=== PATIENT | female | born 1945 | race Caucasian/White ===

== ENCOUNTER 2017-05-21 04:34 | Emergency (ER) | payer MEDICARE, BC ==
[2017-05-21] MEDS ORDERED: DICYCLOMINE 10 MG CAPSULE PO STA (04:54)
[2017-05-21] MEDS ORDERED: ONDANSETRON ODT 4 MG TABLET TL STA (04:54)
--- NOTE | 2017-05-21 04:59 | ED Physician Documentation ---
PD HPI NVD - Stated complaint Stated Complaint: ABDOMINAL,LOW BACK PAIN - Chief complaint Chief Complaint: Abd Pain - History obtained from History obtained from: Patient - History of Present Illness Timing - onset: Today Timing - details: Gradual onset, Now resolved Associated symptoms: Abdominal pain. No: Fever, Chest pain, Hematemesis Worsened by: Eating Similar symptoms before: No diagnosis Recently seen: Not recently seen - Additonal information Additional information: Patient is a 71 year old female with a history of htn who is presenting to the emergency department for nausea, vomiting and diarrhea. Patient states that she had three or four episodes of vomiting and one episode of diarrhea. Patient stated that she had her bring her in. Patient states that she took aspirin before coming and now her symptoms have resolved. Review of Systems Constitutional: denies: Fever, Chills Eyes: denies: Decreased vision Ears: denies: Ear pain Nose: denies: Congestion Throat: denies: Sore throat Cardiac: denies: Chest pain / pressure, Palpitations Respiratory: denies: Dyspnea, Cough, Wheezing GI: reports: Abdominal Pain, Nausea, Vomiting, Diarrhea : denies: Dysuria, Frequency, Hesitancy Skin: denies: Rash, Lesions Musculoskeletal: reports: Back pain. denies: Neck pain, Extremity pain, Joint pain Neurologic: denies: Generalized weakness, Focal weakness, Numbness Immunocompromised: denies: Immunocompromised PD PAST MEDICAL HISTORY - Present Medications Home Medications: Ambulatory Orders Medication Instructions Recorded Confirmed Amlodipine Besylate [Norvasc] 1 tab PO DAILY 05/21/17 05/21/17 Cholecalciferol (Vitamin D3) 1 cap PO DAILY 05/21/17 05/21/17 [Vitamin D3] Dicyclomine [Bentyl] 10 mg PO QID #14 capsule 05/21/17 Letrozole [Femara] 1 tab PO DAILY 05/21/17 05/21/17 Ondansetron [Ondansetron Odt] 4 mg PO Q8H PRN #20 tab.rapdis 05/21/17 - Allergies Allergies/Adverse Reactions: Allergies Allergy/AdvReac Type Severity Reaction Status Date / Time erythromycin base AdvReac Unknown Verified 05/21/17 04:48 [From E-Mycin] PD ED PE NORMAL - Vitals Vital signs reviewed: Yes - General General: Alert and oriented X 3, No acute distress, Well developed/nourished - HEENT HEENT: Atraumatic, PERRL, Pharynx benign - Neck Neck: Supple, no meningeal sign, No JVD - Cardiac Cardiac: RRR, No murmur - Respiratory Respiratory: No respiratory distress, Clear bilaterally - Abdomen Abdomen: Soft - Derm Derm: Normal color, Warm and dry, No rash - Extremities Extremities: No deformity, No edema - Neuro Neuro: Alert and oriented X 3, No motor deficit, No sensory deficit, Normal speech - Psych Psych: Normal mood PD ED PE EXPANDED - HEENT HEENT: Dry mucous membranes - Abdomen Abdomen: Hyperactive BS, Tender to palpation, Epigastric. No: Rebound, Guarding Results - Vitals Vitals: Vital Signs - 24 hr 05/21/17 04:44 Temperature 36.4 C L Heart Rate 76 Respiratory 16 Rate Blood Pressure 169/92 H O2 Saturation 96 Oxygen O2 Source Room air PD MEDICAL DECISION MAKING - ED course Complexity details: reviewed old records, re-evaluated patient, considered differential, d/w patient ED course: Patient was seen and examined at bedside. patient stated that she was feeling better now. patient was offered labs/diagnostics but she stated that she did not think it was necessary as she was no asymptomatic. Patient was treated with zofran and bentyl. patient was given detailed discharge and return instructions. Patient required no further work up and was stable for discharge with outpatient follow up. Departure - Departure Disposition: 01 Home, Self Care Clinical Impression: Gastroenteritis Condition: Good Instructions: ED Gastroenteritis Viral Follow-Up: Laura Andrade MD [Primary Care Provider] - Within 3 Days Prescriptions: Dicyclomine [Bentyl] 10 mg PO QID #14 capsule Ondansetron [Ondansetron Odt] 4 mg PO Q8H PRN #20 tab.rapdis PRN Reason: Nausea / Vomiting Comments: please take the zofran as needed for nausea. you should try to stay well hydrated with gatorade or electrolyte solutions. you should follow up with your pmd if your symptoms persist for more than the next couple of days. You should return to the emergency department for chest pain, shortness of breath, inability to stay hydrated, new, worsening or uncontrollable symptoms.
[2017-05-21] MEDS ORDERED: DICYCLOMINE 10 MG CAPSULE PO ONE (05:05)
[2017-05-21] MEDS ORDERED: ONDANSETRON ODT 4 MG TABLET ONE (05:05)
[2017-05-21 05:15] VITALS: BP 102/68
[2017-05-21] MEDS ORDERED: IOPAMIDOL-300 100 ML VIAL ONE (06:09)
[2017-05-21] MEDS ORDERED: LIDOCAINE JELLY 2% 5 ML TUBE TOP ONE (08:57)
== END 2017-05-21 05:15 | disposition home or self-care (01) ==
LOC: ED 04:34
DX: K52.9 Noninfective gastroenteritis and colitis, unspecified (principal); I10 Essential (primary) hypertension
CPT/HCPCS: 99283; A9270; J3490; Q0162; 80053; 83690; 85025

== ENCOUNTER 2017-05-21 05:38 | Observation (INO) | payer MEDICARE, BC ==
--- NOTE | 2017-05-21 05:49 | ED Physician Documentation ---
PD HPI ABD PAIN - Stated complaint Stated Complaint: ABDOMINAL PAIN,VOMITING - Chief complaint Chief Complaint: Abd Pain - History obtained from History obtained from: Patient, Family - History of Present Illness Timing - onset: Yesterday Timing - details: Gradual onset, Still present Quality: Cramping, Aching Radiation: Lower back Worsened by: Eating Associated symptoms: Nausea, Vomiting, Diarrhea. No: Fever Similar symptoms before: Work up / diagnostics, Treatment Recently seen: Emergency Dept - Additional information Additional information: Patient is a 71 year old female presenting to the emergency department for nausea, vomiting and abdominal pain. Patient was seen in the emergency department about an hour prior. at that time patient stated that she did not want any work up since she was feeling better. Patient states that she got in the car to go home and shortly into the drive the pain came back and patient vomited again and the pain came back so the patient returned for evaluation. Review of Systems Constitutional: denies: Fever, Chills Eyes: reports: Reviewed and negative Ears: reports: Reviewed and negative Nose: denies: Rhinorrhea / runny nose, Congestion Throat: denies: Oral lesions / sores, Sore throat Cardiac: denies: Chest pain / pressure, Palpitations Respiratory: denies: Cough, Wheezing GI: reports: Abdominal Pain, Nausea, Vomiting, Diarrhea : denies: Dysuria, Frequency, Hesitancy Skin: denies: Rash, Lesions Musculoskeletal: denies: Neck pain, Back pain, Extremity pain Neurologic: denies: Generalized weakness, Focal weakness Immunocompromised: denies: Immunocompromised PD PAST MEDICAL HISTORY - Past Medical History Cardiovascular: Hypertension - Past Surgical History Past Surgical History: Yes /[employer]ER: Hysterectomy - Present Medications Home Medications: Ambulatory Orders Medication Instructions Recorded Confirmed Amlodipine Besylate [Norvasc] 2.5 mg PO DAILY 05/21/17 05/21/17 Cholecalciferol (Vitamin D3) 2,000 unit PO DAILY 05/21/17 05/21/17 [Vitamin D3] Letrozole [Femara] 2.5 mg PO DAILY 05/21/17 05/21/17 - Allergies Allergies/Adverse Reactions: Allergies Allergy/AdvReac Type Severity Reaction Status Date / Time erythromycin base AdvReac Unknown Verified 05/21/17 05:41 [From E-Mycin] - Social History Does the pt smoke?: No Smoking Status: Never smoker Does the pt drink ETOH?: Yes Does the pt have substance abuse?: No - Immunizations Immunizations are current?: Yes - POLST Patient has POLST: No PD ED PE NORMAL - Vitals Vital signs reviewed: Yes - General General: Alert and oriented X 3, No acute distress - HEENT HEENT: Atraumatic, PERRL, Pharynx benign - Neck Neck: Supple, no meningeal sign, No JVD - Cardiac Cardiac: RRR, No murmur - Respiratory Respiratory: No respiratory distress, Clear bilaterally - Abdomen Abdomen: Soft - Derm Derm: Normal color, Warm and dry, No rash - Extremities Extremities: No deformity, No tenderness to palpate, Normal ROM s pain - Neuro Neuro: Alert and oriented X 3, chemical handler 2-12 intact, No motor deficit, No sensory deficit, Normal speech - Psych Psych: Normal mood, Normal affect PD ED PE EXPANDED - Abdomen Abdomen: Tender to palpation, Generalized/diffuse. No: Rebound, Guarding Results - Vitals Vitals: Vital Signs - 24 hr 05/21/17 05/21/17 05/21/17 05:42 06:35 07:28 Temperature 36.6 C 37.0 C Heart Rate 82 78 74 Respiratory 18 14 16 Rate Blood Pressure 158/89 H 118/67 141/74 H O2 Saturation 100 100 96 Oxygen O2 Source Room air - Labs Labs: Laboratory Tests 05/21/17 05/21/17 05/21/17 05:55 05:55 05:55 WBC 15.2 H RBC 4.85 Hgb 14.7 Hct 44.0 MCV 90.6 MCH 30.3 MCHC 33.5 RDW 12.9 Plt Count 287 MPV 7.9 Neut # 14.0 H Lymph # 0.7 L [place] # 0.4 Eos # 0.0 Baso # 0.0 Absolute Nucleated RBC 0.00 Nucleated RBC % 0.0 Sodium 139 Potassium 4.0 Chloride 101 Carbon Dioxide 27 Anion Gap 11.0 BUN 19 Creatinine 1.0 Estimated GFR (MDRD) 55 L Glucose 147 H Lactic Acid Calcium 9.5 Total Bilirubin 0.8 AST 29 ALT 20 Alkaline Phosphatase 80 Total Protein 8.1 Albumin 4.6 Globulin 3.5 Albumin/Globulin Ratio 1.3 Lipase 31 Urine Color YELLOW Urine Clarity CLEAR Urine pH 7.0 Ur Specific [place] 1.020 Urine Protein 30 H Urine Glucose (UA) NEGATIVE Urine Ketones TRACE Urine Occult Blood NEGATIVE Urine Nitrite NEGATIVE Urine Bilirubin NEGATIVE Urine Urobilinogen 0.2 (NORMAL) Ur Leukocyte Esterase NEGATIVE Urine RBC 0-5 Urine WBC 0-3 Ur Squamous Epith Cells RARE Squamous Urine Bacteria Rare Urine Mucus Marked Strands Ur Microscopic Review INDICATED Urine Culture Comments NOT INDICATED 05/21/17 06:13 WBC RBC Hgb Hct MCV MCH MCHC RDW Plt Count MPV Neut # Lymph # [place] # Eos # Baso # Absolute Nucleated RBC Nucleated RBC % Sodium Potassium Chloride Carbon Dioxide Anion Gap BUN Creatinine Estimated GFR (MDRD) Glucose Lactic Acid 1.9 Calcium Total Bilirubin AST ALT Alkaline Phosphatase Total Protein Albumin Globulin Albumin/Globulin Ratio Lipase Urine Color Urine Clarity Urine pH Ur Specific [place] Urine Protein Urine Glucose (UA) Urine Ketones Urine Occult Blood Urine Nitrite Urine Bilirubin Urine Urobilinogen Ur Leukocyte Esterase Urine RBC Urine WBC Ur Squamous Epith Cells Urine Bacteria Urine Mucus Ur Microscopic Review Urine Culture Comments - Rads (name of study) ct abdomen and pelvis Radiology: Final report received (sbo with transition point left pelvis) PD MEDICAL DECISION MAKING - ED course Complexity details: reviewed old records, reviewed results, re-evaluated patient , considered differential, d/w patient, d/w family, d/w individual pension consultant ED course: Patient was seen and examined at bedside. IV access was gained and labs were drawn. CT was ordered. When patient returned from imaging the results were reviewed and consistent with sbo. Surgeon, Dr. Saavedra was contacted and the case was discussed with her. She reported that she would come evaluate the patient. Patient was to be admitted for small bowel obstruction. Departure - Departure Disposition: ED Place in Observation Clinical Impression: Small bowel obstruction Condition: Stable Discharge Date/Time: 05/21/17 09:29
[2017-05-21] MEDS ORDERED: SODIUM CHLORIDE 0.9% 1,000 ML IV ONE (05:50)
[2017-05-21] MEDS ORDERED: ONDANSETRON 4 MG/2 ML VIAL IVP STA (05:50)
[2017-05-21 06:03] LABS: BASOPHILS % (AUTO) 0.3 %; HGB - HEMOGLOBIN 14.7 g/dL (12.0-16.0); LYMPHOCYTES # (AUTO) 0.7 10^3/uL (1.5-3.5); LYMPHOCYTES % (AUTO) 4.6 %; MEAN CORPUSCULAR HEMOGLOBIN 30.3 pg (27.0-31.0); MEAN CORPUSCULAR HGB CONC 33.5 g/dL (32.0-36.0); MEAN CORPUSCULAR VOLUME 90.6 fL (81.0-99.0); MEAN PLATELET VOLUME 7.9 fL (7.9-10.8); MONOCYTES # (AUTO) 0.4 10^3/uL (0.0-1.0); MONOCYTES % (AUTO) 2.5 %; NEUTROPHILS % (AUTO) 92.6 %; RED BLOOD COUNT 4.85 10^6/uL (4.20-5.40); RED CELL DISTRIBUTION WIDTH 12.9 % (12.0-15.0); UNCORRECTED WHITE BLOOD COUNT 15.2 x10^3/uL; WHITE BLOOD COUNT 15.2 x10^3/uL (4.8-10.8)
[2017-05-21 06:04] LABS: BILIRUBIN,URINE NEGATIVE (NEGATIVE)
[2017-05-21] MEDS ORDERED: ONDANSETRON 4 MG/2 ML VIAL ONE (06:04)
[2017-05-21 06:06] LABS: UA w/ MICROSCOPIC CHARGE YES
[2017-05-21 06:12] LABS: UR CULTURE IF IND NOT INDICATED; WBC,URINE 0-3 /HPF (0-5)
[2017-05-21 06:15] LABS: ALBUMIN/GLOBULIN RATIO 1.3 (1.0-2.2); BILIRUBIN,TOTAL 0.8 mg/dL (0.2-1.0); CALCIUM 9.5 mg/dL (8.5-10.3); TOTAL PROTEIN 8.1 g/dL (6.7-8.2)
[2017-05-21] MEDS ORDERED: IOPAMIDOL-300 100 ML VIAL IVP ONE (06:36)
--- NOTE | 2017-05-21 06:53 | CT Preliminary Report ---
Exam: CT Abdomen/Pelvis W/ IMPRESSION: 1. Mid small bowel obstruction with transition in the left pelvis, probably due to an adhesion. Mild mesenteric edema. 2. Previous hysterectomy. 3. Colonic diverticulosis. [facility] SITE ID: [id number]
--- NOTE | 2017-05-21 07:00 | CT Report ---
EXAM: CT ABDOMEN AND PELVIS EXAM DATE: 05/21/2017 06:41 AM. CLINICAL HISTORY: 05/21/2017 06:56pain, vomiting, shaking. COMPARISONS: None. TECHNIQUE: Routine helical CT imaging was performed through the abdomen and pelvis. IV contrast: Yes . Enteric contrast: No . Reconstructions: Coronal and sagittal. In accordance with CT protocol optimization, one or more of the following dose reduction techniques w ere utilized for this exam: automated exposure control, adjustment of mA and/or KV based on patient s ize, or use of iterative reconstructive technique. FINDINGS: Lung Bases: Unremarkable. Liver: Unremarkable. No suspicious masses. Gallbladder/Bile Ducts: Unremarkable. Spleen: Unremarkable. Pancreas: Unremarkable. Adrenal Glands: Unremarkable. Kidneys: Unremarkable. No suspicious masses or hydronephrosis. Peritoneal Cavity/Bowel: Mid small bowel obstruction with transition in the left pelvis, probably du e to an adhesion. Mild mesenteric edema adjacent to the dilated loops of proximal bowel. No gross bow el wall thickening or free air. Colonic diverticulosis. Pelvic Organs: Post hysterectomy with no adnexal masses seen. The bladder appears within normal limit s. Vasculature: No aneurysms or other significant abnormality. Bones: No significant abnormality with exception of moderate degenerative changes in the spine. Other: Incidental 5 cm right gluteus hugh intramuscular lipoma. IMPRESSION: 1. Mid small bowel obstruction with transition in the left pelvis, probably due to an adhesion. Mild mesenteric edema. 2. Previous hysterectomy. 3. Colonic diverticulosis. [facility] Referring Provider Line: [phone] SITE ID: [id number]
[2017-05-21] MEDS ORDERED: ONDANSETRON 4 MG/2 ML VIAL IVP PRN (08:39)
[2017-05-21] MEDS ORDERED: MORPHINE 2 MG/ML SYRINGE IVP PRN (08:39)
[2017-05-21] MEDS: LACTATED RINGERS 1,000 ML IV SCH ×2 (09:48→20:19)
[2017-05-21] MEDS: FAMOTIDINE 20 MG/50 ML 50 ML IV SCH ×2 (09:48→20:18)
[2017-05-21] MEDS: SODIUM CHLORIDE FLUSH 0.9% 10 ML SYRINGE IVP PRN ×2 (09:58→12:38)
[2017-05-21] MEDS ORDERED: ENALAPRILAT 1.25 MG/ML VIAL IVP SCH (12:00)
--- NOTE | 2017-05-21 12:00 | HISTORY & PHYSICAL EXAMINATION ---
DATE OF OBSERVATION: 05/21/2017. REASON FOR ADMISSION: Abdominal pain, possible small-bowel obstruction vs gastroenteritis HISTORY OF PRESENT ILLNESS: This is a 71-year-old female who presented to the emergency department early this morning complaining of progressive abdominal pain, which started mid day yesterday. This was also associated with 3 episodes of loose stool and multiple episodes of vomiting. She denies any blood in her stool or vomit. She denies any previous similar episodes. She denies any intake of food out of the ordinary and states that her has been eating what she has been eating and has not gotten sick. She denies any sick contacts. She has a history of having had a hysterectomy and oophorectomy many years ago and has a lower abdominal midline incision. Upon evaluation in the emergency department, she underwent a CT scan of the abdomen without oral contrast, which shows mild dilation of the small bowel with a transition point in the left pelvis, probably secondary to a small-bowel obstruction. A surgical consultation was obtained. Upon my evaluation of the patient, she continues to be nauseous and has moderate abdominal pain. PAST MEDICAL HISTORY: Significant for high blood pressure and a history of breast cancer. PAST SURGICAL HISTORY: Total abdominal hysterectomy and oophorectomy, breast surgery for breast cancer. HOME MEDICATIONS 1. Amlodipine. 2. Letrozole. 3. Vitamin D3. ALLERGIES TO MEDICATIONS: ERYTHROMYCIN. SOCIAL HISTORY: The patient is . She is a nonsmoker and only drinks alcohol very occasionally. PHYSICAL EXAMINATION VITAL SIGNS: Temperature is 37.0, blood pressure 141/74, heart rate 74, respiratory rate 16. O2 is 96% on room air. GENERAL: The patient is awake, alert, oriented x3, and in mild to moderate distress. She is slightly obese. CARDIOVASCULAR: Regular rate and rhythm. CHEST: Clear to auscultation bilaterally. ABDOMEN: Soft, only slightly distended and tender to palpation in the pelvic region with no guarding and no rebound tenderness. EXTREMITIES: Nonedematous. LABORATORY VALUES: White blood cell count is 15.2, hemoglobin 14.7, hematocrit 44, platelets 287. Sodium 139, potassium 4.0, chloride 101, bicarbonate 27, BUN 19, creatinine 1.0. LFTs are normal. ASSESSMENT: This is a 71-year-old female who presents with abdominal pain, possibly secondary to a small-bowel obstruction versus gastroenteritis. PLAN: The patient will be admitted under observation to the surgical service. An NG tube will be placed and a small bowel series will be performed using nondiluted Gastrografin. I explained to the patient that this will delineate the etiology of her abdominal pain. If bowel obstruction is in fact present, then initial management with an NG tube for decompression will be utilized. If this fails, she may be a candidate for surgical intervention. The patient will be placed on IV fluids and her urine output closely monitored. She will also undergo serial abdominal exams. JOB #: [id number] EXT JOB #:[id number] MTDAllegra
--- NOTE | 2017-05-21 12:15 | XRAY Report ---
SUPINE ABDOMEN: 05/21/2017 CLINICAL INDICATION: Possible bowel obstruction. FINDINGS: Supine view of the abdomen was obtained one hour following injection of 100 mL Gastroview through the patient's indwelling nasogastric tube. Supine film demonstrates contrast throughout the small bowel and ascending and transverse colon, excluding a small bowel obstruction. Residual contra st is noted in the urinary bladder from CT of earlier the same day. IMPRESSION: NO EVIDENCE OF SMALL BOWEL OBSTRUCTION, WITH ORAL CONTRAST REACHING THE COLON IN ONE SARATH Gonsalez JOB #: [id number] EXT JOB #:[id number]
[2017-05-21] MEDS: SODIUM CHLORIDE FLUSH 0.9% 10 ML SYRINGE IVP SCH ×2 (13:50→20:19)
[2017-05-22] MEDS: LACTATED RINGERS 1,000 ML IV SCH (05:53)
[2017-05-22] MEDS: SODIUM CHLORIDE FLUSH 0.9% 10 ML SYRINGE IVP SCH (05:54)
[2017-05-22] MEDS ORDERED: BISACODYL 10 MG SUPP PR ONE (08:05)
[2017-05-22] MEDS ORDERED: amLODIPine 5 MG TABLET PO SCH (09:00)
[2017-05-22] MEDS ORDERED: DOCUSATE SODIUM 250 MG CAPSULE PO SCH (09:00)
[2017-05-22] MEDS ORDERED: CHOLECALCIFEROL 1,000 UNIT TABLET PO SCH (09:00)
[2017-05-22] MEDS ORDERED: POLYETHYLENE GLYCOL 3350 17 GM PACKET PO SCH (09:00)
[2017-05-22] MEDS ORDERED: SENNA 8.6 MG TABLET PO SCH ×2 (09:00)
[2017-05-22] MEDS ORDERED: LETROZOLE PO SCH (09:00)
--- NOTE | 2017-05-22 09:06 | PROVIDER PROGRESS NOTE ---
Subjective - Prog Note Date Prog Note Date: 05/22/17 - Subjective Pt reports feeling: Improved Subjective: had a large BM and feels better. Objective - Vital Signs/Intake & Output Reviewed Vital Signs: Yes Vital Signs: Vital Signs x48h Temp Pulse Resp BP Pulse Ox 05/22/17 05:00 36.7 C 62 16 123/63 98 Intake & Output: Intake & Output 05/19/17 05/20/17 05/21/17 05/22/17 23:59 23:59 23:59 23:59 Intake Total 1950 1156.667 Output Total 75 Balance 1875 1156.667 - Objective Respiratory: positive: No respiratory distress Abdomen: positive: Non-tender, Nml bowel sounds, No distention Extremities: positive: No pedal edema Neurologic/Psychiatric: positive: Oriented x3 - Lab Results Fish Bones: 05/21/17 05:55 05/21/17 05:55 Assessment/Plan - Problem List (1) Gastroenteritis Impression: Resolved abdominal pain. Advance diet and DC home.
--- NOTE | 2017-05-22 09:12 | Discharge Plan ---
Discharge Plan Disposition: 01 Home, Self Care Condition: Good Diet: Regular Activity Restrictions: No Restrictions Shower Restrictions: No Driving Restrictions: No Instruction Topics: Gastroenteritis Viral Ch No Smoking: If you smoke, Please STOP! Call for help. Follow-up with: Laura Andrade MD [Primary Care Provider] -
[2017-05-22 09:52] VITALS: BP 143/70
== END 2017-05-22 10:31 | disposition home or self-care (01) ==
LOC: ED 05:38 → OBS 08:40
PROVIDERS: ADMIT Surgery; ATTEND Surgery
DX: K52.9 Noninfective gastroenteritis and colitis, unspecified (principal); I10 Essential (primary) hypertension; Z79.899 Other long term (current) drug therapy
CPT/HCPCS: 36415; 74177; 74250; 80053; 81001; 83605; 83690; 85025; 96361; 96365; 96366; 96375; 96376; 99283; 99284; 99285; A9270; G0378; J3490; J7120; Q0162; Q9967; 81003; 87086; 96374

== ENCOUNTER 2019-08-24 23:43 | Outpatient (CLI) | payer MEDICARE, BC | END 2019-08-24 23:44 | disposition EMS.NT | LOC: EMS 23:43 | PROVIDERS: ATTEND Surgery | DX: R05 Cough (principal); R07.9 Chest pain, unspecified; R50.9 Fever, unspecified ==

== ENCOUNTER 2021-02-07 08:28 | Outpatient (CLI) | payer MEDICARE, BC ==
[2021-02-07 14:28] LABS: BASOPHILS # (AUTO) 0.1 10^3/uL (0.0-0.1); BASOPHILS % (AUTO) 1.1 %; EOSINOPHILS # (AUTO) 0.3 10^3/uL (0.0-0.7); EOSINOPHILS % (AUTO) 5.4 %; HCT - HEMATOCRIT 41.8 % (37.0-47.0); HGB - HEMOGLOBIN 13.2 g/dL (12.0-16.0); LYMPHOCYTES # (AUTO) 1.1 10^3/uL (1.5-3.5); LYMPHOCYTES % (AUTO) 19.7 %; MEAN CORPUSCULAR HEMOGLOBIN 29.9 pg (27.0-31.0); MEAN CORPUSCULAR HGB CONC 31.6 g/dL (32.0-36.0); MEAN CORPUSCULAR VOLUME 94.6 fL (81.0-99.0); MEAN PLATELET VOLUME 10.9 fL (7.9-10.8); MONOCYTES # (AUTO) 0.5 10^3/uL (0.0-1.0); MONOCYTES % (AUTO) 9.1 %; NEUTROPHILS # (AUTO) 3.5 10^3/uL (1.5-6.6); NEUTROPHILS % (AUTO) 64.5 %; PLT - PLATELET COUNT 268 10^3/uL (130-450); RED BLOOD COUNT 4.42 10^6/uL (4.20-5.40); RED CELL DISTRIBUTION WIDTH 12.5 % (12.0-15.0); WHITE BLOOD COUNT 5.4 x10^3/uL (4.8-10.8)
[2021-02-07 14:56] LABS: ALBUMIN 4.3 g/dL (3.2-5.5); ALBUMIN/GLOBULIN RATIO 1.7 (1.0-2.2); ALKALINE PHOSPHATASE 74 IU/L (42-121); ALT ALANINE AMINOTRANSFERASE 19 IU/L (10-60); AST ASPARTATE AMINOTRANSFERASE 24 IU/L (10-42); BILIRUBIN,TOTAL 0.8 mg/dL (0.2-1.0); BUN - BLOOD UREA NITROGEN 15 mg/dL (6-20); CALCIUM 9.2 mg/dL (8.5-10.3); CARBON DIOXIDE - CO2 27 mmol/L (21-32); CHLORIDE 102 mmol/L (101-111); CHOL/HDL RATIO 2.1 (<4.4); CHOLESTEROL 121 mg/dL; CREATININE 0.9 mg/dL (0.4-1.0); GFR - MDRD 61 (>89); GLUCOSE 102 mg/dL (70-100); HDL CHOLESTEROL 57 mg/dL; LDL CHOLESTEROL,CALCULATED 52 mg/dL; LDL/HDL RATIO 0.9 (<4.4); POTASSIUM 4.3 mmol/L (3.5-5.0); SODIUM 139 mmol/L (135-145); TOTAL PROTEIN 6.9 g/dL (6.7-8.2); TRIGLYCERIDES 61 mg/dL; VLDL CHOLESTEROL 12 mg/dL
[2021-02-07 15:10] LABS: THYROID STIMULATING HORMONE 2.25 uIU/mL (0.34-5.60)
[2021-02-07 20:27] LABS: ESTIMATED AVERAGE GLUCOSE 111 mg/dL (70-100); HEMOGLOBIN A1c% 5.5 % (4.27-6.07)
== END 2021-02-07 08:29 | disposition home or self-care (01) ==
LOC: LAB.S 08:28
PROVIDERS: ATTEND Family Medicine
DX: I10 Essential (primary) hypertension (principal); R73.01 Impaired fasting glucose; K29.50 Unspecified chronic gastritis without bleeding
CPT/HCPCS: 36415; 80053; 80061; 82607; 83036; 83721; 84443; 85025

== ENCOUNTER 2023-06-04 12:48 | Outpatient (CLI) | payer BC, MEDICARE ==
--- NOTE | 2023-06-05 10:14 | Mammography Report ---
UNILATERAL RIGHT DIGITAL DIAGNOSTIC MAMMOGRAM 3D/2D: 06/04/2023 CLINICAL: Patient returns today to evaluate an architectural distortion in the right breast. Comparison is made to exams dated: 03/13/2023 mammogram, 03/12/2022 mammogram, 03/10/2021 mammogram, mammogram, and 03/02/2019 mammogram - [facility]. There are scattered areas of fibroglandular density in the right breast (category b / 25%-50% glandul ar tissue). The possible architectural distortion in the right breast at 1 o'clock middle depth is not seen in ad ditional views. No other significant masses or calcifications are seen in the breast. IMPRESSION: BENIGN There is no mammographic evidence of malignancy. Return to annual mammogram screening schedule is rec ommended. This exam was interpreted at Station ID: [id number]. NOTE: For mammograms, a report in lay terms will be sent to the patient. Approximately 15% of breast malignancies will not be visualized mammographically. In the management of a palpable breast mass, a negative mammogram must not discourage biopsy of a clinically suspicious lesion. Electronically Signed By: Candelaria Powell M.D. lk/:06/04/2023 14:05:05 ACR BI-RADS Category 2: Benign Finding(s) 3342F PARENCHYMAL PATTERN: (A) - The breast(s) demonstrate(s) scattered fibroglandular densities. BI-RADS CATEGORY: (2) - 2 RECOMMENDATION: (ANNUAL) - Recommend routine annual screening mammography. [id number] return to screening LATERALITY: (B)
== END 2023-06-04 12:49 | disposition home or self-care (01) ==
LOC: DI 12:48
PROVIDERS: ATTEND Internal Medicine Hematology & Oncology
DX: R92.8 Other abnormal and inconclusive findings on diagnostic imaging of breast (principal); R92.321 Mammographic fibroglandular density, right breast